=== PATIENT | male | born 1980 | race Caucasian/White ===

== ENCOUNTER 2016-12-27 15:51 | Emergency (ER) | payer OTHER ==
[2016-12-27 16:02] VITALS: BP 121/64; PULSE 70; TEMP 98.5; BMI 28.7
--- NOTE | 2016-12-27 17:38 | PDOC ---
History of Present Illness - General Chief Complaint: Injury Stated Complaint: INJURY Time Seen by Provider: 12/27/16 17:15 History Source: Patient Exam Limitations: No Limitations - History of Present Illness Initial Comments: 12/27/16 17:38 36 yr male states he was hit in the head with sheetrock 6 days ago to top of head while at work , NO loc, felt dizzy nausea with vomiting on and off since then. Pt also with neck pain and back pain. no abd pain neg urine or bowel dysfunction. . Pt has no medical history, no prior history of injury. 12/27/16 19:22 Severity: reports: moderate Past History - Past Medical History Allergies/Adverse Reactions: Allergies Allergy/AdvReac Type Severity Reaction Status Date / Time No Known Allergies Allergy Verified 12/27/16 16:02 Home Medications: Ambulatory Orders Cyclobenzaprine HCl [Flexeril -] 10 mg PO HS PRN #7 tablet 12/27/16 Other medical history: denies - Suicide/Smoking/Psychosocial Hx Smoking History: Never smoked Information on smoking cessation initiated: No Hx Alcohol Use: No Drug/Substance Use Hx: No Substance Use Type: None Trauma Specific PMHX - Complaint Specific PMHX Arthritis: No Back Injury: No Neck Injury: No Hx Sacro Iliac Joint Dysfunction: No Review of Systems - Review of Systems Able to Perform ROS?: Yes Is the patient limited Israeli proficient: No Constitutional: No: Symptoms Reported HEENTM: No: Symptoms Reported Respiratory: No: Symptoms reported Cardiac (ROS): No: Symptoms Reported ABD/GI: No: Symptoms Reported : No: Symptoms Reported Musculoskeletal: Yes: Neck Pain Integumentary: No: Symptoms Reported Neurological: Yes: Symptoms reported, Headache *Physical Exam - Vital Signs Last Vital Signs Temp Pulse Resp BP Pulse Ox 98.5 F 70 17 121/64 97 12/27/16 16:00 12/27/16 16:00 12/27/16 16:00 12/27/16 16:00 12/27/16 16:00 - Physical Exam General Appearance: Yes: Nourished, Appropriately Dressed HEENT: positive: EOMI, YURIDIA, Normal ENT Inspection, TMs Normal, Pharynx Normal Neck: positive: Supple. negative: Tender Respiratory/Chest: positive: Lungs Clear, Normal Breath Sounds. negative: Chest Tender Cardiovascular: positive: Regular Rhythm, Regular Rate Gastrointestinal/Abdominal: positive: Normal Bowel Sounds, Soft. negative: Tender Rectal Exam: positive: deferred Musculoskeletal: positive: Normal Inspection, Muscle Spasm (lumbar thoracic paraspinal muscles ), Vertebral Tenderness (cervical spine). negative: Decreased Range of Motion Extremity: positive: Normal Capillary Refill, Normal Inspection, Normal Range of Motion Integumentary: positive: Normal Color, Dry, Warm Neurologic: positive: Fully Oriented, Alert, Normal Mood/Affect, Normal Response , Motor Strength 5/5, Finger to Nose (intact, steady gait AOX3). negative: Numbness, Sensory Deficit, Confused, Disoriented Deep Tendon Reflexes: Bicep (L): 2+, Bicep (R): 2+, Tricep (L): 2+, Tricep (R): 2+ ED Treatment Course - RADIOLOGY Radiology Studies Ordered: Category Date Time Status CERVICAL SPINE CT W/O CONTR [CT] Stat CT Scan 12/27/16 17:[address] WITHOUT CONTRAST [CT] Stat CT Scan 12/27/16 17:27 Ordered Medical Decision Making - Medical Decision Making 12/27/16 19:23 cc: head injury at work 6 days ago has continued headache, dizzyness nasuea vomit yesterday and the accident no change in vision c/o apin to neck and back neg abd pain neg saddle anesthesia neg numbness or tingling to extremities neg groin pain 12/27/16 19:30 pt is aware of the cat scan results a copy has been given. pt is going to follow with his PMD next week to be cleared to return to work . Pt understands the dc plan and all questions asked and answered . *DC/Admit/Observation/Transfer Diagnosis at time of Disposition: Neck pain Concussion Qualifiers: Encounter type: initial encounter Loss of consciousness presence/duration: without LOC Qualified Code(s): S06.0X0A - Concussion without loss of consciousness, initial encounter; S06.0X0A - Concussion without loss of consciousness, initial encounter Back pain Qualifiers: Back pain location: thoracic back pain Chronicity: acute Back pain laterality: midline Qualified Code(s): M54.6 - Pain in thoracic spine; M54.6 - Pain in thoracic spine - Discharge Dispostion Disposition: HOME Condition at time of disposition: Good - Prescriptions Prescriptions: Cyclobenzaprine HCl [Flexeril -] 10 mg PO HS PRN #7 tablet PRN Reason: Muscle Spasms - Referrals Referrals: Neptali Calle MD [Primary Care Provider] - Markos Beaulieu MD [Staff Physician] - - Patient Instructions Additional Instructions: drink pleanty of water the next 3-4 days avoid any alcohol, you can take motrin as needed for any pain warm compresses to the back of neck and to your back can help avoid loud noises, texting reading small print avoid any sports/ strenuous activity until you have been cleared by the neurologist or your doctor for follow up - Post Discharge Activity Forms/Work/School Notes: Back to Work
[2016-12-27] MEDS ORDERED: NAPROXEN 500 MG TABLET (FP) PO ONE (19:13)
[2016-12-27] MEDS ORDERED: NAPROXEN 500 MG TABLET (FP) ONE (19:16)
== END 2016-12-27 19:30 | disposition home or self-care (01) ==
LOC: JERFT 15:51
DX: S06.0X0A Concussion without loss of consciousness, initial encounter (principal); M54.2 Cervicalgia; M54.6 Pain in thoracic spine; W20.8XXA Other cause of strike by thrown, projected or falling object, initial encounter; Y93.9 Activity, unspecified; Y92.9 Unspecified place or not applicable; Y99.0 Civilian activity done for income or pay
CPT/HCPCS: 70450-TC; 72125-TC; 72131-TC; 99281-25

== ENCOUNTER 2017-07-22 16:32 | Emergency (ER) | payer BC, OTHER ==
--- NOTE | 2017-07-22 16:44 | PDOC ---
History of Present Illness - General Chief Complaint: Chest Pain Stated Complaint: CHEST PAIN History Source: Patient Exam Limitations: No Limitations Past History - Past Medical History Allergies/Adverse Reactions: Allergies Allergy/AdvReac Type Severity Reaction Status Date / Time No Known Allergies Allergy Verified 12/27/16 16:02 Home Medications: Ambulatory Orders Cyclobenzaprine HCl [Flexeril -] 10 mg PO HS PRN #7 tablet 12/27/16 - Suicide/Smoking/Psychosocial Hx Smoking History: Never smoked Hx Alcohol Use: No Drug/Substance Use Hx: No Substance Use Type: None
[2017-07-22] MEDS ORDERED: SODIUM CHLORIDE 1,000 ML IV STA (16:45)
--- NOTE | 2017-07-22 16:47 | PDOC ---
History of Present Illness - General Chief Complaint: Chest Pain Stated Complaint: CHEST PAIN Time Seen by Provider: 07/22/17 16:46 History Source: Patient Exam Limitations: No Limitations - History of Present Illness Initial Comments: 07/22/17 16:55 Pt is a 37 yo M with no signif PMHx presenting 1 hr after sniffing cocaine with retrosternal pain. The pain is 10/10, non- radiating tightness of chest and diaphoresis. Pt also used alcohol but denies tobacco or other drug use. Has never had similar reaction in the past. No hx of syncope, no headaches, no seizures, no weakness of any part of the body. Pt used cialis yesterday night. No Shortness of breath, no cough, no leg swelling. Pt is anxious about the pain. No dysuria, no abdominal pain. Timing/Duration: 1-3 hours Severity: moderate Associated Symptoms: reports: chest pain, diaphoresis. denies: cough, fever/ chills, headaches, loss of appetite, nausea/vomiting, syncope Past History - Past Medical History Allergies/Adverse Reactions: Allergies Allergy/AdvReac Type Severity Reaction Status Date / Time No Known Allergies Allergy Verified 07/22/17 16:51 Home Medications: Ambulatory Orders Cyclobenzaprine HCl [Flexeril -] 10 mg PO HS PRN #7 tablet 12/27/16 - Suicide/Smoking/Psychosocial Hx Smoking History: Never smoked Hx Alcohol Use: Yes Drug/Substance Use Hx: Yes Substance Use Type: Cocaine (Used cocaine today) Patient Lives Alone: No Review of Systems - Review of Systems Is the patient limited Thai proficient: No Constitutional: Yes: Diaphoresis. No: Chills, Fever HEENTM: No: Nose Congestion, Throat Swelling Respiratory: No: Cough, Orthopnea, Shortness of Breath, SOB at Rest, Stridor, Wheezing, Productive cough Cardiac (ROS): Yes: Chest Pain, Palpitations, Chest Tightness. No: Edema, Irregular Heart Rate, Lightheadedness, Syncope ABD/GI: No: Abdominal Distended, Diarrhea, Difficulty Swallowing, Vomiting : No: Burning, Dysuria, Discharge Neurological: No: Headache, Numbness, Paresthesia, Seizure, Tremors, Weakness, Unsteady Gait, Dizziness *Physical Exam - Physical Exam General Appearance: Yes: Apparent Distress, Other (anxious) HEENT: positive: EOMI, Pharynx Normal Neck: positive: Supple. negative: Tender Respiratory/Chest: positive: Lungs Clear, Normal Breath Sounds. negative: Respiratory Distress Cardiovascular: positive: S1, S2, Tachycardia Gastrointestinal/Abdominal: positive: Normal Bowel Sounds, Soft. negative: Tender Musculoskeletal: negative: CVA Tenderness, Muscle Spasm Extremity: positive: Normal Inspection, Normal Range of Motion. negative: Tender, Coldness Integumentary: positive: Dry, Warm. negative: Cyanotic, Erythema Neurologic: positive: Fully Oriented, Alert, Motor Strength 5/5. negative: Facial Droop, Numbness, Confused, Disoriented Heart Score/ECG Review - History History: Slightly suspicious - Age Age: </= 45 - P and CO Comment:: 07/22/17 17:14 Poor data quality- Ventricular rate- 141bpm,sinus tachycardia, LAD, ST and T wave abnormality, consider inferior ischemia, no previous EKG to compare ED Treatment Course - LABORATORY CBC & Chemistry Diagram: 07/22/17 16:47 07/22/17 16:47 Medical Decision Making - Medical Decision Making 07/22/17 17:14 Pt will receive ASA, ativan 2mg, EKG stat done, iv normal saline 1L, cardiac monitoring CBC, CMP, cardiac profile, UA, urine tox, TSH, D dimer, urine culture, Continuous cardiac monitoring 07/22/17 17:15 Likely cocaine induced vasospasm R/O ACS, hyperthyroidism. anxiety disorder 07/22/17 17:16 K-3.2- Kcl- 10meq x2 07/22/17 17:29 07/22/17 17:43 Initial trops negative, repeat by 20.34 along with repeat EKG 07/22/17 17:44 07/22/17 17:47 D/W pt he is contemplating not having the repeat trops Risks were explained to him Penidng UA and utox 07/22/17 17:49 Creatinine kinaSE -6801 continue rehydration 07/22/17 17:57 Patient does not want to wait to have the repeat trops. He wants to sign against medical advice. The risks were explained to him of an acute NV, syncope, seizures and sudden Patient signed against medical advice and left 07/22/17 18:02 *DC/Admit/Observation/Transfer Diagnosis at time of Disposition: Coronary vasospasm, Cocaine use, Tachycardia Chest pain Qualifiers: Chest pain type: unspecified Qualified Code(s): R07.9 - Chest pain, unspecified - Discharge Dispostion Disposition: AGAINST MEDICAL ADVICE - Referrals Referrals: Neptali Calle MD [Primary Care Provider] - - Patient Instructions - Post Discharge Activity - Attestations Physician Attestion: 07/22/17 18:10 Nusrat Norman MD
[2017-07-22] MEDS ORDERED: ASPIRIN 325 MG TABLET PO ONE (16:49)
[2017-07-22 16:52] VITALS: BMI 28.7
[2017-07-22] MEDS ORDERED: ASPIRIN 325 MG TABLET ONE (16:52)
[2017-07-22 16:55] LABS: BASO % 0.4 % (0-2.0); EOS % 1.1 % (0-4.5); HEMATOCRIT 44.6 % (35.4-49); HEMOGLOBIN 15.6 GM/dL (11.7-16.9); LYMPH % 39.3 % (8-40); MEAN CELL VOLUME 88.5 fl (80-96); MEAN PLT VOLUME 8.4 fl (7.5-11.1); MONO % 11.3 % (3.8-10.2); NEUT % 47.9 % (42.8-82.8); PLATELET COUNT 334 K/MM3 (134-434); RBC 5.04 M/mm3 (4.00-5.60); RDW 13.3 % (11.9-15.9); WHITE BLOOD COUNT 10.4 K/mm3 (4.0-10.0)
--- NOTE | 2017-07-22 17:16 | PDOC ---
Attending Attestation - Resident Resident Name: Nusrat Norman I - ED Attending Attestation I have performed the following: I have examined & evaluated the patient, The case was reviewed & discussed with the resident, I agree w/resident's findings & plan, Exceptions are as noted - HPI HPI: 07/22/17 17:00 Mr pham is a 37 yo M who reports no past medical history he presents to the ER with his friend due to chest pain and palpitations Pt reports that he took cocaine approximately 1 hour ago He noticed chest pain and tachycardia Pt tells me that he has used cocaine before He does not notice any difference between the cocaine he used today and what he has done previously He denies any other drug use today - Physicial Exam PE: 07/22/17 17:16 On examination Pt is anxious Can not sit on the stretcher Is pacing Tachycardiac, no murmur appreciated CTA bilaterally No abd tenderness Moves all extremities normally - Medical Decision Making 07/22/17 17:17 Pt presents to the ER with a complaint of chest pain, he is noted to be tachycardiac DD: Effects of cocaine, ACS, Hyperthyroidism, PE, Arryhthmia Will do: Labs EKG IVF Valium Asa Will re assess EKG: sinus tachucardia rate of 141bpm, Left axis deviation, no st elevations, prominent t waves, artifact on baseline 07/22/17 17:42 Laboratory Tests 07/22/17 07/22/17 07/22/17 16:47 16:47 16:47 WBC 10.4 H Hgb 15.6 Hct 44.6 Plt Count 334 D-Dimer 705 H Sodium 138 Potassium 3.2 L Chloride 100 Carbon Dioxide 25 BUN 15 Creatinine 1.2 Random Glucose 129 H AST 169 H ALT 118 H Creatine Kinase 6801 H Troponin I < 0.02 TSH 1.04 Pt states he is felling much better chest pain has resolved D dimer sent prior to patient admitting to cocaine intoxication I do not believe based on his history, that he has a pulmonary embolism Despite the elevation in d dimer, I will not order CTA Will repeat troponin 07/22/17 18:01 Pt feels much better Refusing to stay for any additional medications or IV fluids Will leave AMA Follow up with PMD Note: The patient insists on leaving the emergency dept and is signing out against medical advice. The patient understands the risks and complications that may result from the refusal of medical care and admission which includes and permanent disability. The patient has the mental capacity of understanding the risks of refusing care and is capable of making an informed decision. The patient was instructed to return to the emergency department should he change his mind regarding medical care or should his condition worsen. The patient signed the Against Medical Advice form. 07/23/17 00:54 Discharge Disposition - Diagnosis Tachycardia, Cocaine use, Coronary vasospasm Chest pain Qualifiers: Chest pain type: unspecified Qualified Code(s): R07.9 - Chest pain, unspecified - Discharge Dispostion Disposition: AGAINST MEDICAL ADVICE Condition at time of disposition: Fair Admit: No - Referrals Referrals: Neptali Calle MD [Primary Care Provider] - - Patient Instructions - Post Discharge Activity Critical Care Time/MDM Note Total Critical Care Time: 35 Critical Care Statement: The care of this patient involved high complexity decision making to prevent further life threatening deterioration of the patient 's condition and/or to evaluate & treat vital organ system(s) failure or risk of failure.
[2017-07-22 17:21] LABS: ALBUMIN 4.2 g/dl (3.4-5.0); ANION GAP 13 (8-16); BILIRUBIN,TOTAL 0.6 mg/dL (0.2-1.0); BLOOD UREA NITROGEN 15 mg/dL (7-18); CALCIUM 8.4 mg/dL (8.5-10.1); CHLORIDE 100 mmol/L (98-107); CO2 25 mmol/L (21-32); CREATININE 1.2 mg/dL (0.7-1.3); GLUCOSE,RANDOM 129 mg/dL (74-106); POTASSIUM 3.2 mmol/L (3.5-5.1); SGOT/AST 169 U/L (15-37); SGPT/ALT 118 U/L (12-78); SODIUM 138 mmol/L (136-145); TOT PROT 7.7 g/dl (6.4-8.2)
[2017-07-22 17:29] LABS: ALK PHOS 82 U/L (45-117)
[2017-07-22] MEDS ORDERED: KCL 10 MEQ IVPB 10 MEQ/100 ML INFUS.BAG IVPB SCH (17:30)
[2017-07-22 18:25] VITALS: BP 143/94; PULSE 107; TEMP 98
--- NOTE | 2017-07-24 10:46 | EKG ---
Test Reason : Blood Pressure : / mmHG Vent. Rate : 141 BPM Atrial Rate : 141 BPM P-R Int : 156 ms QRS Dur : 094 ms QT Int : 248 ms P-R-T Axes : 000 -78 268 degrees QTc Int : 379 ms POOR DATA QUALITY, INTERPRETATION MAY BE ADVERSELY AFFECTED SINUS TACHYCARDIA LEFT AXIS DEVIATION ABNORMAL ECG NO PREVIOUS ECGS AVAILABLE Confirmed by MARIAH ORTEZ MD ([id number]) on 07/24/2017 10:45:46 AM Referred By: Confirmed By:MARIAH ORTEZ MD
== END 2017-07-22 18:11 | disposition left against medical advice (07) ==
LOC: JER 16:32
PROC: 3E0337Z Introduction of Electrolytic and Water Balance Substance into Peripheral Vein, Percutaneous Approach (ICD-10-PCS; principal; 2017-07-22)
PROC: 3E033NZ Introduction of Analgesics, Hypnotics, Sedatives into Peripheral Vein, Percutaneous Approach (ICD-10-PCS; 2017-07-22)
DX: I20.1 Angina pectoris with documented spasm (principal); R07.89 Other chest pain; F14.10 Cocaine abuse, uncomplicated
CPT/HCPCS: 36415; 80053; 82550; 82553; 84443; 84484; 85025; 85379; 93005; 93010; 99285-25; J7030

== ENCOUNTER 2018-02-22 11:27 | Emergency (ER) | payer BC, OTHER ==
--- NOTE | 2018-02-22 11:37 | PDOC ---
Attending Attestation - Resident Resident Name: Ronna Mann - HPI HPI: 02/22/18 12:46 Pt presents to the ED complaining of epigastric pain, nausea and vomiting that started this AM. Patient reports that he is on chronic oxycodone, which he has not taken for three weeks. Denies diarrhea or fevers. - Physicial Exam PE: 02/22/18 12:50 Agree with resident exam. Patient is in no acute distress. Abdomen is non tender, non distended without guarding or rebound. - Medical Decision Making 02/22/18 12:50 Pt presents to the Ed complaining of nausea, vomiting and epigastric pain. Differential includes pancreatitis, biliary disease, gastritis, unlikely cardiac. Will check labs and give IV hydration and anti emetics and re- evaluate.
--- NOTE | 2018-02-22 11:37 | PDOC ---
History of Present Illness - General Chief Complaint: Nausea Stated Complaint: i think im going into withdrawal Time Seen by Provider: 02/22/18 11:34 History Source: Patient Exam Limitations: No Limitations - History of Present Illness Initial Comments: 02/22/18 11:59 Pt is a 37yo M with no significant PMH presenting to ED with complaints of "not feeling right" for the past 2 days and feels like he is going through withdrawal. Pt takes oxycodone 10 and Seroquel, last took oxycodone yesterday and has a new prescription but has not filled it yet. Pt says he has not had an appetite and feels weak. He endorses vomiting clear liquid this morning and feeling nauseous. He denies fever, chills, chest pain, sob, cough, abdominal pain, diarrhea, urinary symptoms. PMD: N[place] PMH: none PSH: none Meds: seroquel, oxycodone Allergies; nkda Social: occasional alcohol use. Past History - Past Medical History Allergies/Adverse Reactions: Allergies Allergy/AdvReac Type Severity Reaction Status Date / Time No Known Allergies Allergy Verified 02/22/18 11:34 Home Medications: Ambulatory Orders Ondansetron [Zofran -] 4 mg PO DAILY #7 tablet 02/22/18 Oxycodone HCl/Acetaminophen [Oxycodone-Acetaminophen 10-325] 1 each PO TID 02/22 Quetiapine Fumarate [Seroquel] 100 mg PO HS 02/22/18 COPD: No - Suicide/Smoking/Psychosocial Hx Smoking History: Never smoked Hx Alcohol Use: Yes Drug/Substance Use Hx: Yes Substance Use Type: Cocaine (Used cocaine today) *Physical Exam - Physical Exam General Appearance: Yes: Nourished, Appropriately Dressed, Mild Distress HEENT: positive: EOMI, YURIDIA (mydriatic pupils), Symmetrical, Pharynx Normal Neck: positive: Trachea midline, Supple. negative: Lymphadenopathy (R), Lymphadenopathy (L) Respiratory/Chest: positive: Lungs Clear, Normal Breath Sounds. negative: Crackles, Rales, Rhonchi, Stridor, Wheezing Cardiovascular: positive: Regular Rhythm, Regular Rate, S1, S2. negative: Edema , JVD, Murmur Vascular Pulses: Carotid (R): 2+, Carotid (L): 2+, Dorsalis-Pedis (R): 2+, Doralis-Pedis (L): 2+ Gastrointestinal/Abdominal: positive: Normal Bowel Sounds, Soft, Tenderness ( diffuse, however greater in epigastrum ). negative: Distended, Guarding, Rebound Musculoskeletal: negative: CVA Tenderness Extremity: positive: Normal Capillary Refill Integumentary: positive: Normal Color, Dry, Warm Neurologic: positive: emu farmer II-XII NML intact, Fully Oriented, Alert, Normal Mood/ Affect, Normal Response, Motor Strength 07/22 ED Treatment Course - LABORATORY CBC & Chemistry Diagram: 02/22/18 11:52 02/22/18 11:52 Medical Decision Making - Medical Decision Making 02/22/18 12:02 Pt is a 37yo M with no significant PMH presenting to ED with complaints of "not feeling right" for the past 2 days and feels like he is going through withdrawal. Pt takes oxycodone 10 and Seroquel, last took oxycodone yesterday and has a new prescription but has not filled it yet. Pt says he has not had an appetite and feels weak. He endorses vomiting clear liquid this morning and feeling nauseous. He denies fever, chills, chest pain, sob, cough, abdominal pain, diarrhea, urinary symptoms. Vitals: wnl PE: epigastric tenderness, mydriatic pupils, dry mucous membranes ddx includes cholecyctitis, appendicitis, pancreatitis, gastritis, pud, opiate withdrawal. cbc, cmp, lipase, ua, utox ordered. will give ivf, zofran and pepcid. Will reeval. 02/22/18 12:45 Labs show elevated WBC at 11.1 otherwise wnl. Lipase still pending. All other labs wnl. Utox positive for bz. Lipase still pending. Pt reported feeling better. Wanted to go home. Pt does not have any acute problems per physical exam and labs other than lipase still pending. Will call if results are abnormal. Pt agrees to come back if so. Has pmd follow up. DC home. Given strict return precautions. *DC/Admit/Observation/Transfer Diagnosis at time of Disposition: Weakness Nausea & vomiting Qualifiers: Vomiting type: unspecified Vomiting Intractability: non-intractable Qualified Code(s): R11.2 - Nausea with vomiting, unspecified - Discharge Dispostion Disposition: HOME Condition at time of disposition: Good Decision to Admit order: No - Prescriptions Prescriptions: Ondansetron [Zofran -] 4 mg PO DAILY #7 tablet - Referrals Referrals: Neptali Calle MD [Primary Care Provider] - - Patient Instructions Printed Discharge Instructions: DI for Nausea -- Adult, DI for Vomiting -- Adult Additional Instructions: You were seen here today for feelings of weakness, nausea and vomiting. All of your tests were normal. If you have medications prescribed by your doctor, please take your medications. Remember to take your medications as directed unless changed by your doctor. I recommend you make an appointment with Dr. Calle in the next few days for further evaluation and management of your symptoms. Please make sure you stay hydrated! If you cannot tolerate solid foods, stick to soups for now. Come back to the emergency room if you feel more weak, you develop fever, you cannot stop vomiting, you pass out or if any new concerning symptom develops. Thank you - Post Discharge Activity
[2018-02-22 11:38] VITALS: BP 130/86; PULSE 82; TEMP 98.5; BMI 30.1
[2018-02-22] MEDS ORDERED: SODIUM CHLORIDE 1,000 ML IV STA (11:48)
[2018-02-22] MEDS ORDERED: FAMOTIDINE 20 MG/50 ML IVPB 20 MG/50 ML MG IVPB ONE ×2 (11:48→12:00)
[2018-02-22] MEDS ORDERED: ONDANSETRON 4 MG/2 ML VIAL IVPB ONE (11:48)
[2018-02-22] MEDS ORDERED: ONDANSETRON 4 MG/2 ML VIAL ONE (12:00)
[2018-02-22 12:15] LABS: BASO % 2.1 % (0-2.0); EOS % 0.3 % (0-4.5); HEMATOCRIT 48.9 % (35.4-49); HEMOGLOBIN 16.1 GM/dl (11.7-16.9); LYMPH % 10.8 % (8-40); MCH 29.3 pg (25.7-33.7); MEAN CELL VOLUME 88.7 fl (80-96); MEAN PLT VOLUME 8.1 fl (7.5-11.1); NEUT % 78.8 % (42.8-82.8); PLATELET COUNT 430 K/MM3 (134-434); RBC 5.51 M/mm3 (4.00-5.60); RDW 12.8 % (11.9-15.9); WHITE BLOOD COUNT 11.1 K/mm3 (4.0-10.8)
[2018-02-22 12:23] LABS: PH,URINE 5.5 (4.5-8); URINE APPEARANCE Clear; URINE BILIRUBIN 1+ (NEGATIVE); URINE COLOR Yellow; URINE GLUCOSE (UA) Negative (NEGATIVE); URINE KETONE Trace (NEGATIVE); URINE LEUK ESTERASE Negative (NEGATIVE); URINE NITRITE Negative (NEGATIVE); URINE PROTEIN Trace (NEGATIVE); URINE UROBILINOGEN 0.2 (0.2-1.0)
[2018-02-22 12:27] LABS: ALBUMIN 4.4 g/dl (3.5-5.0); ALK PHOS 71 U/L (32-92); ANION GAP 8 MMOL/L (8-16); BILIRUBIN,TOTAL 0.7 mg/dl (0.2-1.0); BLOOD UREA NITROGEN 25 mg/dl (7-18); CALCIUM 9.9 mg/dl (8.4-10.2); CHLORIDE 100 mmol/L (98-107); CO2 27 mmol/L (22-28); CREATININE 0.9 mg/dl (0.6-1.3); GLUCOSE,RANDOM 107 mg/dl (74-106); POTASSIUM 4.4 mmol/L (3.5-5.1); SGOT/AST 27 U/L (10-42); SGPT/ALT 40 U/L (10-40); SODIUM 135 mmol/L (136-145); TOT PROT 8.4 g/dl (6.4-8.3)
[2018-02-22 12:36] LABS: URINE RBC 0-2 /hpf (0-3)
[2018-02-22 14:05] LABS: COCAINE, UR NEGATIVE ng/ml (CUTOFF=300); METHADONE, UR NEGATIVE ng/ml (CUTOFF=300); OPIATES, URI NEGATIVE ng/ml (CUTOFF=300); PHENCYCLIDINE,URINE NEGATIVE ng/ml (CUTOFF=25); URINE AMPHETAMINES NEGATIVE ng/ml (CUTOFF=500); URINE BARBITURATES NEGATIVE ng/ml (CUTOFF=200)
[2018-02-22 14:16] LABS: URINE BENZODIAZEPINES POSITIVE ng/ml (CUTOFF=200)
== END 2018-02-22 14:13 | disposition home or self-care (01) ==
LOC: FER 11:27
PROC: 3E033GC Introduction of Other Therapeutic Substance into Peripheral Vein, Percutaneous Approach (ICD-10-PCS; principal; 2018-02-22)
PROC: 3E0337Z Introduction of Electrolytic and Water Balance Substance into Peripheral Vein, Percutaneous Approach (ICD-10-PCS; 2018-02-22)
DX: R11.2 Nausea with vomiting, unspecified (principal); R53.1 Weakness
CPT/HCPCS: 36415; 80053; 80307; 81003; 81015; 83690; 85025; 99282-25; J7030

== ENCOUNTER 2018-06-01 23:12 | Emergency (ER) | payer SELFPAY ==
--- NOTE | 2018-06-01 23:15 | PDOC ---
History of Present Illness - General Chief Complaint: Psychiatric Stated Complaint: ANXIETY Time Seen by Provider: 06/01/18 23:14 - History of Present Illness Initial Comments: This 38-year-old man with a known history of opiate dependence presents with several day history of progressive tremulousness, insomnia and generalized anxiety. Patient describes being in inpatient detox/rehabilitation program for opiate abuse in early March of this year(facility in [facility]). After he was discharged, he was prescribed alprazolam by one of his physicians for insomnia. Although patient is unclear on details, it appears that he had been taking alprazolam daily until approximately 10 days ago when he stopped on his own. He states that he no longer wanted to be taking the medication but did not want to be in a detox/rehabilitation program for benzodiazepine withdrawal. In the last several days, patient has been unable to sleep with increased tremulousness, intermittent nausea, occasional chest discomfort. Patient had read on the Internet about benzodiazepine withdrawal and is concerned about having a seizure. Patient denies opiate use since his rehabilitation program in March. PMD: Dr. Calle; patient has also been seen by [he has not seen either physician in several weeks] Past History - Past Medical History Allergies/Adverse Reactions: Allergies Allergy/AdvReac Type Severity Reaction Status Date / Time No Known Allergies Allergy Verified 02/22/18 11:34 Home Medications: Ambulatory Orders Percocet 10-325 mg Tablet 06/01/18 Xanax 06/01/18 Alprazolam [Xanax] 0.25 mg PO BID #10 tablet MDD 2 tabs 06/02/18 Ondansetron [Zofran Odt -] 4 mg SL BID #10 od.tablet 06/02/18 COPD: No - Suicide/Smoking/Psychosocial Hx Smoking History: Never smoked Hx Alcohol Use: Yes Drug/Substance Use Hx: Yes Substance Use Type: Cocaine (Used cocaine today) Review of Systems - Review of Systems Able to Perform ROS?: Yes Comments:: 12 point review of systems is negative except for what is noted in the history of present illness *Physical Exam - Physical Exam Comments: GENERAL: Adult male, anxious but cooperative; BP 118/74, HR 89, pulse ox 100% on room air HEAD: Normal with no signs of trauma. EYES: PERRLA, EOMI, sclera anicteric, conjunctiva clear. ENT: Ears normal, nares patent, oropharynx clear without exudates. Tongue minimal fasciculations Dry mucous membranes. NECK: Normal range of motion, supple without lymphadenopathy, JVD, or masses. LUNGS: Breath sounds equal, clear to auscultation bilaterally. No wheezes, and no crackles. HEART:Regular rate and rhythm, normal S1 and S2 without murmur, rub or gallop. ABDOMEN:.normal bowel sounds No guarding,tenderness or rebound.No masses No distention. EXTREMITIES: Normal range of motion, no edema. No clubbing or cyanosis. No erythema, or tenderness. NEUROLOGICAL: Cranial nerves II through XII grossly intact. Normal speech. No focal neurological deficits. MUSCULOSKELETAL: Back non-tender to palpation, no CVA tenderness SKIN: Warm, Dry, normal turgor, no rashes or lesions noted. 12-lead electrocardiogram is performed and interpreted by me: Normal sinus rhythm at 80 beats per minute; wave forms, axis, intervals are all normal. No evidence of acute ST or T-wave abnormalities. No evidence of acute cardiac arrhythmia ED Treatment Course - LABORATORY CBC & Chemistry Diagram: 06/01/18 23:50 06/01/18 23:50 Medical Decision Making - Medical Decision Making This 38-year-old man with a history of opiate dependence,s/p seemingly successful rehabilitation for narcotics 2 months ago, presents with symptoms of tremulousness/insomnia/nausea for the last several days. The patient had stopped apparent daily alprazolam use 10 days ago "cold turkey". Benzodiazepine had been started for the first time approximately 6 weeks prior to that, prescribed by physician for insomnia. Patient denies prior use of any benzodiazepines. He denies any other recreational drug use/alcohol use at this time. Exam as noted. Although many of the patient's symptoms may be related to underlying anxiety, since details of patient's drug use are very unclear, some aspect of benzodiazepine withdrawal has to be considered. Vital signs show no evidence of instability and 12-lead electrocardiogram is normal. Since patient appears clinically dehydrated, 1 L normal saline IV given and CBC/ chemistry profile sent. Meanwhile, patient was given alprazolam 0.5 milligrams by mouth. Laboratory evaluation results: Blood cell count minimally elevated 11,100; remainder of CBC normal. Chemistry profile essentially normal except for elevated BUN consistent with mild prerenal azotemia (BUN 22/creatinine 1.0). Patient reports feeling somewhat better after alprazolam 0.5 mg by mouth. Patient was reassured that acute, life-threatening benzodiazepine withdrawal did not appear to be present. Still, because some of his symptoms may be related to withdrawal, low-dose daily alprazolam (0.25 mg twice a day) is warranted until he can be seen by his doctors and arrangements for formal detox/ rehabilitation made. Prescription for alprazolam 0.25 mg twice a day (#10) sent to his pharmacy. In addition, his anxiety disorder needs to be addressed by his doctors. He was strongly advised to call and when office opens on Monday , 06/04. Contact information for area detox/rehabilitation programs provided for the patient. Patient was discharged in stable condition, accompanied by family friend who will drive him home *DC/Admit/Observation/Transfer Diagnosis at time of Disposition: Benzodiazepine dependence, Anxiety - Discharge Dispostion Disposition: HOME Condition at time of disposition: Stable - Prescriptions Prescriptions: Alprazolam [Xanax] 0.25 mg PO BID #10 tablet MDD 2 tabs Ondansetron [Zofran Odt -] 4 mg SL BID #10 od.tablet - Referrals Referrals: Neptali Calle MD [Primary Care Provider] - 3 days Yousuf Stern MD [Staff Physician] - 3 days - Patient Instructions Printed Discharge Instructions: DI for Anxiety -- Adult Additional Instructions: Drink plenty of water Alprazolam 0.25 milligrams twice a day Zofran ODT 4mg up to twice a day as needed for nausea Follow-up with Dr. Calle and within the next 3-4 days Consider detox/rehabilitation program in the near future Return to ER if you have worsening tremors or develop chest pain/shortness of breath/vomiting - Post Discharge Activity
[2018-06-01 23:20] VITALS: BP 118/74; PULSE 89; TEMP 98.5
[2018-06-01] MEDS ORDERED: SODIUM CHLORIDE 1,000 ML IV STA (23:44)
[2018-06-02] MEDS ORDERED: ALPRAZolam 0.25 MG TABLET PO ONE (00:12)
[2018-06-02] MEDS ORDERED: ALPRAZolam 0.25 MG TABLET ONE (00:20)
[2018-06-02 00:27] LABS: BASO % 0.5 % (0-2.0); EOS % 0.1 % (0-4.5); HEMATOCRIT 45.7 % (35.4-49); HEMOGLOBIN 15.5 GM/dL (11.7-16.9); MCH 29.8 pg (25.7-33.7); MCHC 33.9 g/dl (32.0-35.9); MEAN CELL VOLUME 87.8 fl (80-96); MEAN PLT VOLUME 8.4 fl (7.5-11.1); MONO % 6.1 % (3.8-10.2); NEUT % 81.3 % (42.8-82.8); PLATELET COUNT 377 K/MM3 (134-434); RBC 5.21 M/mm3 (4.00-5.60); RDW 13.7 % (11.9-15.9); WHITE BLOOD COUNT 11.1 K/mm3 (4.0-10.0)
[2018-06-02 00:54] LABS: ALBUMIN 4.3 g/dl (3.4-5.0); ALK PHOS 72 U/L (45-117); ANION GAP 6 MMOL/L (8-16); BILIRUBIN,TOTAL 0.6 mg/dL (0.2-1); BLOOD UREA NITROGEN 22 mg/dL (7-18); CALCIUM 9.5 mg/dL (8.5-10.1); CHLORIDE 104 mmol/L (98-107); CO2 26 mmol/L (21-32); CREATININE 0.9 mg/dL (0.55-1.3); GLUCOSE,RANDOM 107 mg/dL (74-106); POTASSIUM 4.3 mmol/L (3.5-5.1); SGOT/AST 16 U/L (15-37); SGPT/ALT 30 U/L (13-61); SODIUM 136 mmol/L (136-145); TOT PROT 7.6 g/dl (6.4-8.2)
--- NOTE | 2018-06-02 13:10 | EKG ---
Test Reason : Blood Pressure : / mmHG Vent. Rate : 080 BPM Atrial Rate : 080 BPM P-R Int : 150 ms QRS Dur : 102 ms QT Int : 380 ms P-R-T Axes : 043 031 060 degrees QTc Int : 438 ms NORMAL SINUS RHYTHM NORMAL ECG WHEN COMPARED WITH ECG OF 22-JUL-2017 16:38, VENT. RATE HAS DECREASED BY 61 BPM QRS AXIS SHIFTED RIGHT NON-SPECIFIC CHANGE IN ST SEGMENT IN INFERIOR LEADS ST NO LONGER DEPRESSED IN ANTERIOR LEADS T WAVE INVERSION NO LONGER EVIDENT IN INFERIOR LEADS Confirmed by MD DELMI, LORETO ([id number]) on 06/02/2018 1:09:56 PM Referred By: MD DENSON Confirmed By:LORETO AWAD MD
== END 2018-06-02 02:15 | disposition home or self-care (01) ==
LOC: FER 23:12
PROC: 3E0337Z Introduction of Electrolytic and Water Balance Substance into Peripheral Vein, Percutaneous Approach (ICD-10-PCS; principal; 2018-06-01)
DX: F11.90 Opioid use, unspecified, uncomplicated (principal); F41.9 Anxiety disorder, unspecified
CPT/HCPCS: 36415; 80053; 85025; 93005; 99282-25; J7030

== ENCOUNTER 2020-08-12 14:37 | Inpatient (IN) | payer OTHER ==
[2020-08-12 15:51] VITALS: BMI 29.0
[2020-08-12] MEDS ORDERED: MAGNESIUM CITRATE 300 ML BOTTLE PO PRN (16:53)
[2020-08-12] MEDS ORDERED: MAGNESIUM HYDROX 2400MG/30ML ORAL SUSPENSION 30 ML CUP PO PRN (16:53)
[2020-08-12] MEDS ORDERED: ACETAMINOPHEN 325 MG TABLET (FP) PO PRN ×2 (16:53)
[2020-08-12] MEDS ORDERED: NICOTINE POLACRILEX 2 MG GUM BUC PRN (16:53)
[2020-08-12] MEDS ORDERED: ONDANSETRON *ODT* 4 MG TABLET SL PRN (16:53)
[2020-08-12] MEDS ORDERED: MAG HYDROX/AL HYDROX/SIMETH 30 ML UNIT-DOSE CUP PO PRN (16:53)
[2020-08-12] MEDS ORDERED: MENTHOL/PHENOL 1 EACH UD MM PRN (16:53)
[2020-08-12] MEDS ORDERED: IBUPROFEN 400 MG TABLET (FP) PO PRN (16:53)
[2020-08-12] MEDS ORDERED: BISMUTH SUBSALICYLATE 524 MG/30 ML PO PRN (16:53)
[2020-08-12] MEDS: hydrOXYzine PAMOATE 25 MG CAPSULE (FP) PO SCH ×2 (18:48→23:43)
[2020-08-12] MEDS: MELATONIN 5 MG TABLETS PO SCH (23:43)
[2020-08-12] MEDS: THIAMINE HCL 100 MG TABLET (FP) PO SCH (23:43)
[2020-08-13] MEDS: hydrOXYzine PAMOATE 25 MG CAPSULE (FP) PO SCH ×5 (05:37→22:32)
[2020-08-13] MEDS ORDERED: METHADONE HCL 10 MG TABLET (FOR DETOX USE ONLY) PO ONE (09:06)
[2020-08-13] MEDS ORDERED: cloNIDine HCL 0.1 MG TABLET PO PRN (09:06)
[2020-08-13 09:59] LABS: HEMATOCRIT 40.8 % (35.4-49); HEMOGLOBIN 13.8 GM/dL (11.7-16.9); MCH 29.8 pg (25.7-33.7); MCHC 33.8 g/dl (32.0-35.9); MEAN PLT VOLUME 8.4 fl (7.5-11.1); PLATELET COUNT 256 K/MM3 (134-434); RBC 4.63 M/mm3 (4.00-5.60); RDW 13.5 % (11.9-15.9); WHITE BLOOD COUNT 4.8 K/mm3 (4.0-10.0)
[2020-08-13 10:10] LABS: CALCIUM 8.7 mg/dL (8.5-10.1)
[2020-08-13 10:11] LABS: ALBUMIN 3.3 g/dl (3.4-5.0); BLOOD UREA NITROGEN 16.7 mg/dL (7-18)
[2020-08-13] MEDS: PRENATAL VITAMINS W/ FOLIC ACID TABLET (FP) PO SCH (10:14)
[2020-08-13 10:15] LABS: BILIRUBIN,TOTAL 0.6 mg/dL (0.2-1); TOT PROT 6.5 g/dl (6.4-8.2)
[2020-08-13] MEDS: MELATONIN 5 MG TABLETS PO SCH (22:32)
[2020-08-13] MEDS: THIAMINE HCL 100 MG TABLET (FP) PO SCH (22:32)
[2020-08-14] MEDS: hydrOXYzine PAMOATE 25 MG CAPSULE (FP) PO SCH ×5 (05:08→23:09)
[2020-08-14] MEDS ORDERED: METHADONE HCL 5 MG TABLET (FOR DETOX USE ONLY) ONE (09:18)
[2020-08-14] MEDS ORDERED: METHADONE HCL 10 MG TABLET (FOR DETOX USE ONLY) ONE (09:19)
[2020-08-14] MEDS ORDERED: METHADONE (DETOX) 20 MG, METHADONE (DETOX) 5 MG PO ONE (10:00)
[2020-08-14] MEDS: PRENATAL VITAMINS W/ FOLIC ACID TABLET (FP) PO SCH (10:16)
[2020-08-14] MEDS: diazePAM 5 MG TABLET PO PRN ×3 (10:17→23:09)
[2020-08-14] MEDS: METHOCARBAMOL 500 MG TABLET PO PRN (17:50)
[2020-08-14] MEDS: THIAMINE HCL 100 MG TABLET (FP) PO SCH (23:09)
[2020-08-14] MEDS: MELATONIN 5 MG TABLETS PO SCH (23:09)
[2020-08-15] MEDS: hydrOXYzine PAMOATE 25 MG CAPSULE (FP) PO SCH ×5 (06:56→22:06)
[2020-08-15] MEDS ORDERED: METHADONE HCL 10 MG TABLET (FOR DETOX USE ONLY) PO ONE (10:00)
[2020-08-15] MEDS: diazePAM 5 MG TABLET PO PRN ×3 (10:21→22:48)
[2020-08-15] MEDS: PRENATAL VITAMINS W/ FOLIC ACID TABLET (FP) PO SCH (11:24)
[2020-08-15] MEDS: MELATONIN 5 MG TABLETS PO SCH (22:06)
[2020-08-15] MEDS: THIAMINE HCL 100 MG TABLET (FP) PO SCH (22:06)
[2020-08-16 00:09] LABS: SARS-CoV-2 NAA Not Detected (Not Detected)
[2020-08-16] MEDS: diazePAM 5 MG TABLET PO PRN ×3 (06:59→22:15)
[2020-08-16] MEDS: hydrOXYzine PAMOATE 25 MG CAPSULE (FP) PO SCH ×5 (07:02→22:14)
[2020-08-16] MEDS ORDERED: METHADONE HCL 5 MG TABLET (FOR DETOX USE ONLY) ONE (08:34)
[2020-08-16] MEDS ORDERED: METHADONE HCL 10 MG TABLET (FOR DETOX USE ONLY) ONE (08:34)
[2020-08-16] MEDS: PRENATAL VITAMINS W/ FOLIC ACID TABLET (FP) PO SCH (09:41)
[2020-08-16] MEDS ORDERED: METHADONE (DETOX) 10 MG, METHADONE (DETOX) 5 MG PO ONE (10:00)
[2020-08-16] MEDS: MELATONIN 5 MG TABLETS PO SCH (22:14)
[2020-08-16] MEDS: THIAMINE HCL 100 MG TABLET (FP) PO SCH (22:15)
[2020-08-17] MEDS: hydrOXYzine PAMOATE 25 MG CAPSULE (FP) PO SCH ×6 (05:55→22:28)
[2020-08-17] MEDS ORDERED: METHADONE HCL 10 MG TABLET (FOR DETOX USE ONLY) PO ONE (10:00)
[2020-08-17] MEDS: PRENATAL VITAMINS W/ FOLIC ACID TABLET (FP) PO SCH (10:14)
[2020-08-17] MEDS: THIAMINE HCL 100 MG TABLET (FP) PO SCH (22:28)
[2020-08-17] MEDS: MELATONIN 5 MG TABLETS PO SCH (22:29)
[2020-08-18] MEDS: hydrOXYzine PAMOATE 25 MG CAPSULE (FP) PO SCH ×2 (05:35→10:10)
[2020-08-18] MEDS: METHOCARBAMOL 500 MG TABLET PO PRN (05:37)
[2020-08-18] MEDS ORDERED: METHADONE HCL 5 MG TABLET (FOR DETOX USE ONLY) PO ONE (06:00)
[2020-08-18] MEDS: PRENATAL VITAMINS W/ FOLIC ACID TABLET (FP) PO SCH (10:10)
[2020-08-18 12:56] VITALS: BP 126/60; PULSE 83; TEMP 97.3
== END 2020-08-18 12:40 | disposition other institution (70) | DRG 773 ==
LOC: YASAS 14:37 → UNDOADMIN 17:26 → Y6N 17:26
PROVIDERS: ADMIT Allergy & Immunology; ATTEND Allergy & Immunology
PROC: HZ2ZZZZ Detoxification Services for Substance Abuse Treatment (ICD-10-PCS; principal; 2020-08-12)
DX: F11.23 Opioid dependence with withdrawal (principal); F14.20 Cocaine dependence, uncomplicated; F13.20 Sedative, hypnotic or anxiolytic dependence, uncomplicated; F10.20 Alcohol dependence, uncomplicated; M54.89 Other dorsalgia; R74.01 Elevation of levels of liver transaminase levels; Z87.891 Personal history of nicotine dependence
CPT/HCPCS: 36415; 80053; 85027; 86780; C9803; U0003; U0005

== ENCOUNTER 2020-08-18 12:24 | Inpatient (IN) | payer OTHER ==
[2020-08-18] MEDS ORDERED: NICOTINE POLACRILEX 2 MG GUM BUC PRN (13:17)
[2020-08-18] MEDS ORDERED: hydrOXYzine PAMOATE 25 MG CAPSULE (FP) PO PRN (13:17)
[2020-08-18] MEDS ORDERED: ACETAMINOPHEN 325 MG TABLET (FP) PO PRN (13:17)
[2020-08-18] MEDS ORDERED: MENTHOL/PHENOL 1 EACH UD MM PRN (13:17)
[2020-08-18] MEDS ORDERED: P-EPHED 60MG/TRIPROLIDI 2.5MG TABLET PO PRN (13:17)
[2020-08-18] MEDS ORDERED: MAGNESIUM HYDROX 2400MG/30ML ORAL SUSPENSION 30 ML CUP PO PRN (13:17)
[2020-08-18] MEDS ORDERED: guaiFENesin 200 MG/10 ML 10 ML UNIT-DOSE CUPS PO PRN (13:17)
[2020-08-18] MEDS ORDERED: MAGNESIUM CITRATE 300 ML BOTTLE PO PRN (13:17)
[2020-08-18] MEDS ORDERED: LOPERAMIDE HCL 2 MG CAPSULE PO PRN (13:17)
[2020-08-18] MEDS ORDERED: IBUPROFEN 400 MG TABLET (FP) PO PRN (13:17)
[2020-08-18] MEDS ORDERED: MAG HYDROX/AL HYDROX/SIMETH 30 ML UNIT-DOSE CUP PO PRN (13:17)
[2020-08-18] MEDS ORDERED: THIAMINE HCL 100 MG TABLET (FP) PO SCH (22:00)
[2020-08-18] MEDS ORDERED: MELATONIN 5 MG TABLETS PO SCH (22:00)
[2020-08-19 06:36] VITALS: BP 131/58; PULSE 82; TEMP 98
[2020-08-19] MEDS ORDERED: NICOTINE 7 MG/24 HOURS TOPICAL PATCH TD SCH (10:00)
[2020-08-19] MEDS ORDERED: PRENATAL VITAMINS W/ FOLIC ACID TABLET (FP) PO SCH (10:00)
[2020-08-19 11:05] LABS: HIV INTERPRETATION NEGATIVE (NEGATIVE)
== END 2020-08-19 09:20 | disposition left against medical advice (07) | DRG 770 ==
LOC: YASAS 12:24 → Y3W 12:25
PROVIDERS: ADMIT Allergy & Immunology; ATTEND Allergy & Immunology
PROC: HZ42ZZZ Group Counseling for Substance Abuse Treatment, Cognitive-Behavioral (ICD-10-PCS; principal; 2020-08-18)
DX: F11.20 Opioid dependence, uncomplicated (principal); F14.20 Cocaine dependence, uncomplicated; M54.2 Cervicalgia; M54.9 Dorsalgia, unspecified; G89.29 Other chronic pain
CPT/HCPCS: 36415; 87389

== ENCOUNTER 2020-11-20 16:45 | Inpatient (IN) | payer OTHER ==
[2020-11-20 18:14] VITALS: BMI 28.7
[2020-11-20] MEDS ORDERED: MENTHOL/PHENOL 1 EACH UD MM PRN (18:15)
[2020-11-20] MEDS ORDERED: ACETAMINOPHEN 325 MG TABLET (FP) PO PRN ×2 (18:15)
[2020-11-20] MEDS ORDERED: NICOTINE 10 MG CARTRIDGE (INHALER) IH PRN (18:15)
[2020-11-20] MEDS ORDERED: BISMUTH SUBSALICYLATE 524 MG/30 ML PO PRN (18:15)
[2020-11-20] MEDS ORDERED: MAGNESIUM CITRATE 300 ML BOTTLE PO PRN (18:15)
[2020-11-20] MEDS ORDERED: MAGNESIUM HYDROX 2400MG/30ML ORAL SUSPENSION 30 ML CUP PO PRN (18:15)
[2020-11-20] MEDS ORDERED: ONDANSETRON *ODT* 4 MG TABLET SL PRN (18:15)
[2020-11-20] MEDS ORDERED: diazePAM 5 MG TABLET PO PRN (18:15)
[2020-11-20] MEDS ORDERED: IBUPROFEN 400 MG TABLET (FP) PO PRN (18:15)
[2020-11-20] MEDS ORDERED: MAG HYDROX/AL HYDROX/SIMETH 30 ML UNIT-DOSE CUP PO PRN (18:15)
[2020-11-20] MEDS ORDERED: cloNIDine HCL 0.1 MG TABLET PO PRN (18:18)
[2020-11-20] MEDS ORDERED: methaDONE HCL 10 MG TABLET (FOR DETOX USE ONLY) PO ONE (18:18)
[2020-11-20] MEDS ORDERED: NALOXONE (NARCAN) HCL 4 MG/0.1 ML SPRAY NS PRN (18:20)
[2020-11-20] MEDS: hydrOXYzine PAMOATE 25 MG CAPSULE (FP) PO SCH (22:40)
[2020-11-20] MEDS: diazePAM 5 MG TABLET PO SCH (22:40)
[2020-11-20] MEDS: THIAMINE HCL 100 MG TABLET (FP) PO SCH (22:40)
[2020-11-20] MEDS: MELATONIN 5 MG TABLETS PO SCH (22:41)
[2020-11-21] MEDS: hydrOXYzine PAMOATE 25 MG CAPSULE (FP) PO SCH ×5 (05:34→22:35)
[2020-11-21] MEDS: diazePAM 5 MG TABLET PO SCH ×4 (05:34→22:35)
[2020-11-21] MEDS ORDERED: methaDONE HCL 10 MG TABLET (FOR DETOX USE ONLY) ONE (08:46)
[2020-11-21] MEDS: PRENATAL VITAMINS W/ FOLIC ACID TABLET (FP) PO SCH (10:07)
[2020-11-21] MEDS: METHOCARBAMOL 500 MG TABLET PO PRN (10:08)
[2020-11-21 15:20] LABS: HEMATOCRIT 46.1 % (35.4-49); HEMOGLOBIN 15.7 GM/dL (11.7-16.9); MCH 31.1 pg (25.7-33.7); MCHC 34.2 g/dl (32.0-35.9); MEAN CELL VOLUME 91.1 fl (80-96); PLATELET COUNT 294 10^3/uL (134-434); RBC 5.06 M/mm3 (4.00-5.60); RDW 13.2 % (11.9-15.9); WHITE BLOOD COUNT 3.6 K/mm3 (4.0-10.0)
[2020-11-21 15:37] LABS: CALCIUM 8.7 mg/dL (8.5-10.1)
[2020-11-21 15:38] LABS: ALBUMIN 3.3 g/dl (3.4-5.0); BLOOD UREA NITROGEN 11.8 mg/dL (7-18)
[2020-11-21 15:43] LABS: BILIRUBIN,TOTAL 0.8 mg/dL (0.2-1); TOT PROT 6.5 g/dl (6.4-8.2)
[2020-11-21 16:16] LABS: HIV INTERPRETATION NEGATIVE (NEGATIVE)
[2020-11-21] MEDS: THIAMINE HCL 100 MG TABLET (FP) PO SCH (22:35)
[2020-11-21] MEDS: MELATONIN 5 MG TABLETS PO SCH (22:35)
[2020-11-22] MEDS: hydrOXYzine PAMOATE 25 MG CAPSULE (FP) PO SCH ×5 (05:39→22:39)
[2020-11-22] MEDS: diazePAM 5 MG TABLET PO SCH ×3 (05:40→22:39)
[2020-11-22] MEDS ORDERED: methaDONE HCL 10 MG TABLET (FOR DETOX USE ONLY) PO ONE (10:00)
[2020-11-22] MEDS: PRENATAL VITAMINS W/ FOLIC ACID TABLET (FP) PO SCH (10:33)
[2020-11-22] MEDS: METHOCARBAMOL 500 MG TABLET PO PRN ×2 (10:34→22:40)
[2020-11-22] MEDS: MELATONIN 5 MG TABLETS PO SCH (22:39)
[2020-11-22] MEDS: THIAMINE HCL 100 MG TABLET (FP) PO SCH (22:39)
[2020-11-23] MEDS: hydrOXYzine PAMOATE 25 MG CAPSULE (FP) PO SCH ×5 (05:20→22:32)
[2020-11-23] MEDS: diazePAM 5 MG TABLET PO SCH ×2 (05:20→17:52)
[2020-11-23] MEDS ORDERED: methaDONE HCL 10 MG TABLET (FOR DETOX USE ONLY) ONE (08:49)
[2020-11-23] MEDS: PRENATAL VITAMINS W/ FOLIC ACID TABLET (FP) PO SCH (10:17)
[2020-11-23] MEDS: METHOCARBAMOL 500 MG TABLET PO PRN (10:18)
[2020-11-23] MEDS: MELATONIN 5 MG TABLETS PO SCH (22:32)
[2020-11-23] MEDS: THIAMINE HCL 100 MG TABLET (FP) PO SCH (22:32)
[2020-11-24] MEDS: METHOCARBAMOL 500 MG TABLET PO PRN (05:18)
[2020-11-24] MEDS: hydrOXYzine PAMOATE 25 MG CAPSULE (FP) PO SCH (05:18)
[2020-11-24] MEDS ORDERED: diazePAM 5 MG TABLET PO ONE (06:00)
[2020-11-24] MEDS ORDERED: hydrOXYzine PAMOATE 25 MG CAPSULE (FP) PO PRN (07:25)
[2020-11-24] MEDS ORDERED: methaDONE HCL 10 MG TABLET (FOR DETOX USE ONLY) PO ONE (10:00)
[2020-11-24] MEDS: PRENATAL VITAMINS W/ FOLIC ACID TABLET (FP) PO SCH (10:21)
[2020-11-24] MEDS: MELATONIN 5 MG TABLETS PO SCH (22:08)
[2020-11-24] MEDS: THIAMINE HCL 100 MG TABLET (FP) PO SCH (22:39)
[2020-11-25 06:05] VITALS: BP 91/54; PULSE 56; TEMP 96.8
== END 2020-11-25 09:41 | disposition home or self-care (01) | DRG 773 ==
LOC: YASAS 16:45 → Y6N 19:38 → Y3N 11-21 14:41
PROVIDERS: ADMIT Allergy & Immunology; ATTEND Allergy & Immunology
PROC: HZ2ZZZZ Detoxification Services for Substance Abuse Treatment (ICD-10-PCS; principal; 2020-11-20)
DX: F11.23 Opioid dependence with withdrawal (principal); F13.230 Sedative, hypnotic or anxiolytic dependence with withdrawal, uncomplicated; F14.20 Cocaine dependence, uncomplicated; M54.5 Low back pain
CPT/HCPCS: 36415; 80053; 85027; 86780; 87389; C9803; U0003; U0005

== ENCOUNTER 2021-01-10 07:19 | Emergency (ER) | payer OTHER ==
[2021-01-10 07:40] VITALS: BMI 31.3
[2021-01-10 08:45] LABS: BASO % 0.6 % (0-2.0); EOS % 1.6 % (0-4.5); HEMATOCRIT 42.6 % (35.4-49); HEMOGLOBIN 14.9 GM/dL (11.7-16.9); LYMPH % 14.4 % (8-40); MCH 30.1 pg (25.7-33.7); MCHC 35.1 g/dl (32.0-35.9); MEAN CELL VOLUME 85.7 fl (80-96); MEAN PLT VOLUME 7.4 fl (7.5-11.1); MONO % 9.1 % (3.8-10.2); NEUT % 74.3 % (42.8-82.8); PLATELET COUNT 295 10^3/uL (134-434); RBC 4.97 M/mm3 (4.00-5.60); RDW 13.2 % (11.9-15.9); WHITE BLOOD COUNT 10.3 K/mm3 (4.0-10.0)
[2021-01-10 09:00] LABS: CHLORIDE 100 mmol/L (98-107); SODIUM 139 mmol/L (136-145)
[2021-01-10 09:02] LABS: CALCIUM 9.1 mg/dL (8.5-10.1)
[2021-01-10 09:03] LABS: ALBUMIN 3.8 g/dl (3.4-5.0); ANION GAP 2 MMOL/L (8-16); BLOOD UREA NITROGEN 25.4 mg/dL (7-18); CO2 37 mmol/L (21-32); GLUCOSE,RANDOM 100 mg/dL (74-106)
[2021-01-10 09:06] LABS: CREATININE 1.3 mg/dL (0.55-1.3); SGOT/AST 56 U/L (15-37); SGPT/ALT 63 U/L (13-61)
[2021-01-10 09:08] LABS: BILIRUBIN,TOTAL 0.4 mg/dL (0.2-1); TOT PROT 7.2 g/dl (6.4-8.2)
[2021-01-10 09:09] LABS: ALK PHOS 78 U/L (45-117)
[2021-01-10] MEDS ORDERED: KETOROLAC TROMETHAMINE 60 MG/2 ML VIAL IVPUSH ONE (14:51)
[2021-01-10] MEDS ORDERED: LIDO 2%/EPI 1:200000 PRESRVFRE (20 ML SDVIAL) INF ONE (15:44)
[2021-01-10] MEDS ORDERED: ACETAMINOPHEN 325 MG TABLET (FP) PO ONE (15:44)
[2021-01-10] MEDS ORDERED: KETOROLAC TROMETHAMINE 30 MG/1 ML VIAL ONE (15:46)
[2021-01-10] MEDS ORDERED: LIDOCAINE 5% TOPICAL PATCH TP ONE (15:47)
[2021-01-10 16:02] VITALS: TEMP 98.3
[2021-01-10 20:08] VITALS: BP 97/62; PULSE 80
[2021-01-10] MEDS ORDERED: LIDOCAINE PATCH REMOVAL MC SCH (22:00)
== END 2021-01-10 21:17 | disposition home or self-care (01) ==
LOC: JER 07:19
PROC: 3E033GC Introduction of Other Therapeutic Substance into Peripheral Vein, Percutaneous Approach (ICD-10-PCS; principal; 2021-01-10)
DX: R41.82 Altered mental status, unspecified (principal); R53.81 Other malaise; F13.90 Sedative, hypnotic, or anxiolytic use, unspecified, uncomplicated; F19.90 Other psychoactive substance use, unspecified, uncomplicated
CPT/HCPCS: 36415; 70450-TC; 71045-TC-FY; 72125-TC; 72131-TC; 80053; 80307; 82962; 85025; 93005; 93010; 96374; 99285-25

== ENCOUNTER 2021-01-14 11:55 | Inpatient (IN) | payer OTHER ==
[2021-01-14] MEDS ORDERED: MENTHOL/PHENOL 1 EACH UD MM PRN (13:27)
[2021-01-14] MEDS ORDERED: diazePAM 5 MG TABLET PO PRN (13:27)
[2021-01-14] MEDS ORDERED: MAGNESIUM CITRATE 300 ML BOTTLE PO PRN (13:27)
[2021-01-14] MEDS ORDERED: ONDANSETRON *ODT* 4 MG TABLET SL PRN (13:27)
[2021-01-14] MEDS ORDERED: ACETAMINOPHEN 325 MG TABLET (FP) PO PRN ×2 (13:27)
[2021-01-14] MEDS ORDERED: methaDONE HCL 10 MG TABLET (FOR DETOX USE ONLY) PO ONE (13:27)
[2021-01-14] MEDS ORDERED: BISMUTH SUBSALICYLATE 262 MG/15 ML BTL PO PRN (13:27)
[2021-01-14] MEDS ORDERED: IBUPROFEN 400 MG TABLET (FP) PO PRN (13:27)
[2021-01-14] MEDS ORDERED: cloNIDine HCL 0.1 MG TABLET PO PRN (13:27)
[2021-01-14] MEDS ORDERED: MAG HYDROX/AL HYDROX/SIMETH 30 ML UNIT-DOSE CUP PO PRN (13:27)
[2021-01-14] MEDS ORDERED: MAGNESIUM HYDROX 2400MG/30ML ORAL SUSPENSION 30 ML CUP PO PRN (13:27)
[2021-01-14 13:43] VITALS: BMI 27.8
[2021-01-14] MEDS: hydrOXYzine PAMOATE 25 MG CAPSULE (FP) PO SCH ×4 (17:40→22:05)
[2021-01-14] MEDS: diazePAM 5 MG TABLET PO SCH ×2 (17:40→22:05)
[2021-01-14 17:49] LABS: HEMATOCRIT 42.9 % (35.4-49); HEMOGLOBIN 14.7 GM/dL (11.7-16.9); MCH 29.6 pg (25.7-33.7); MCHC 34.3 g/dl (32.0-35.9); MEAN CELL VOLUME 86.2 fl (80-96); PLATELET COUNT 333 10^3/uL (134-434); RBC 4.97 M/mm3 (4.00-5.60); RDW 13.1 % (11.9-15.9); WHITE BLOOD COUNT 6.2 K/mm3 (4.0-10.0)
[2021-01-14 18:06] LABS: ALBUMIN 3.7 g/dl (3.4-5.0); BLOOD UREA NITROGEN 24.3 mg/dL (7-18); CALCIUM 8.9 mg/dL (8.5-10.1)
[2021-01-14 18:09] LABS: CREATININE 1.4 mg/dL (0.55-1.3)
[2021-01-14 18:11] LABS: BILIRUBIN,TOTAL 0.7 mg/dL (0.2-1); TOT PROT 7.4 g/dl (6.4-8.2)
[2021-01-14] MEDS: PRENATAL VITAMINS W/ FOLIC ACID TABLET (FP) PO SCH (18:23)
[2021-01-14] MEDS: THIAMINE HCL 100 MG TABLET (FP) PO SCH (22:05)
[2021-01-14] MEDS: MELATONIN 5 MG TABLETS PO SCH (22:05)
[2021-01-15] MEDS: hydrOXYzine PAMOATE 25 MG CAPSULE (FP) PO SCH ×5 (05:24→22:11)
[2021-01-15] MEDS: diazePAM 5 MG TABLET PO SCH ×4 (05:24→22:12)
[2021-01-15] MEDS ORDERED: methaDONE HCL 10 MG TABLET (FOR DETOX USE ONLY) ONE (09:10)
[2021-01-15] MEDS: PRENATAL VITAMINS W/ FOLIC ACID TABLET (FP) PO SCH (10:32)
[2021-01-15] MEDS: THIAMINE HCL 100 MG TABLET (FP) PO SCH (22:11)
[2021-01-15] MEDS: MELATONIN 5 MG TABLETS PO SCH (22:13)
[2021-01-16] MEDS: diazePAM 5 MG TABLET PO SCH ×3 (05:18→22:07)
[2021-01-16] MEDS: hydrOXYzine PAMOATE 25 MG CAPSULE (FP) PO SCH ×5 (05:18→22:06)
[2021-01-16] MEDS ORDERED: methaDONE HCL 10 MG TABLET (FOR DETOX USE ONLY) PO ONE (10:00)
[2021-01-16] MEDS: PRENATAL VITAMINS W/ FOLIC ACID TABLET (FP) PO SCH (10:28)
[2021-01-16 12:07] LABS: BLOOD UREA NITROGEN 15.4 mg/dL (7-18); CALCIUM 9.3 mg/dL (8.5-10.1)
[2021-01-16 12:10] LABS: CREATININE 0.9 mg/dL (0.55-1.3)
[2021-01-16] MEDS: MELATONIN 5 MG TABLETS PO SCH (22:06)
[2021-01-16] MEDS: THIAMINE HCL 100 MG TABLET (FP) PO SCH (22:07)
[2021-01-17] MEDS: hydrOXYzine PAMOATE 25 MG CAPSULE (FP) PO SCH ×5 (05:28→22:02)
[2021-01-17] MEDS: diazePAM 5 MG TABLET PO SCH ×2 (05:29→17:35)
[2021-01-17] MEDS: PRENATAL VITAMINS W/ FOLIC ACID TABLET (FP) PO SCH (09:33)
[2021-01-17] MEDS ORDERED: methaDONE HCL 10 MG TABLET (FOR DETOX USE ONLY) ONE (09:34)
[2021-01-17] MEDS: MELATONIN 5 MG TABLETS PO SCH (22:01)
[2021-01-17] MEDS: THIAMINE HCL 100 MG TABLET (FP) PO SCH (22:02)
[2021-01-17] MEDS: MIRTAZAPINE 15 MG TABLET (FP) PO SCH (22:02)
[2021-01-18] MEDS: hydrOXYzine PAMOATE 25 MG CAPSULE (FP) PO SCH ×5 (05:19→22:28)
[2021-01-18] MEDS ORDERED: diazePAM 5 MG TABLET PO ONE (06:00)
[2021-01-18] MEDS ORDERED: methaDONE HCL 10 MG TABLET (FOR DETOX USE ONLY) PO ONE (10:00)
[2021-01-18] MEDS: PRENATAL VITAMINS W/ FOLIC ACID TABLET (FP) PO SCH (10:02)
[2021-01-18] MEDS: METHOCARBAMOL 500 MG TABLET PO PRN ×2 (10:03→22:21)
[2021-01-18] MEDS: THIAMINE HCL 100 MG TABLET (FP) PO SCH (22:19)
[2021-01-18] MEDS: MIRTAZAPINE 15 MG TABLET (FP) PO SCH (22:19)
[2021-01-18] MEDS: MELATONIN 5 MG TABLETS PO SCH (22:21)
[2021-01-19] MEDS: hydrOXYzine PAMOATE 25 MG CAPSULE (FP) PO SCH ×2 (05:11→10:08)
[2021-01-19 09:10] VITALS: BP 100/51; PULSE 77; TEMP 97.8
[2021-01-19] MEDS: METHOCARBAMOL 500 MG TABLET PO PRN (10:08)
[2021-01-19] MEDS: PRENATAL VITAMINS W/ FOLIC ACID TABLET (FP) PO SCH (10:08)
== END 2021-01-19 12:22 | disposition other institution (70) | DRG 773 ==
LOC: YASAS 11:55 → Y3N 13:48 → Y6N 01-15 12:59
PROVIDERS: ADMIT Allergy & Immunology; ATTEND Allergy & Immunology
PROC: HZ2ZZZZ Detoxification Services for Substance Abuse Treatment (ICD-10-PCS; principal; 2021-01-14)
DX: F11.23 Opioid dependence with withdrawal (principal); F10.230 Alcohol dependence with withdrawal, uncomplicated; F13.230 Sedative, hypnotic or anxiolytic dependence with withdrawal, uncomplicated; F14.10 Cocaine abuse, uncomplicated; F19.24 Other psychoactive substance dependence with psychoactive substance-induced mood disorder; F41.9 Anxiety disorder, unspecified; F34.1 Dysthymic disorder; G47.00 Insomnia, unspecified; Z56.0 Unemployment, unspecified; Z59.01 Sheltered homelessness
CPT/HCPCS: 36415; 80048; 80053; 85027; 86780; 93005; 93010; C9803; J0735; U0003; U0005

== ENCOUNTER 2021-01-19 11:06 | Inpatient (IN) | payer OTHER ==
[2021-01-19] MEDS ORDERED: NICOTINE 10 MG CARTRIDGE (INHALER) IH PRN (11:55)
[2021-01-19] MEDS ORDERED: MAG HYDROX/AL HYDROX/SIMETH 30 ML UNIT-DOSE CUP PO PRN (11:55)
[2021-01-19] MEDS ORDERED: MAGNESIUM HYDROX 2400MG/30ML ORAL SUSPENSION 30 ML CUP PO PRN (11:55)
[2021-01-19] MEDS ORDERED: guaiFENesin 200 MG/10 ML 10 ML UNIT-DOSE CUPS PO PRN (11:55)
[2021-01-19] MEDS ORDERED: P-EPHED 60MG/TRIPROLIDI 2.5MG TABLET PO PRN (11:55)
[2021-01-19] MEDS ORDERED: MAGNESIUM CITRATE 300 ML BOTTLE PO PRN (11:55)
[2021-01-19] MEDS ORDERED: hydrOXYzine PAMOATE 25 MG CAPSULE (FP) PO PRN (11:55)
[2021-01-19] MEDS ORDERED: ACETAMINOPHEN 325 MG TABLET (FP) PO PRN (11:55)
[2021-01-19] MEDS ORDERED: IBUPROFEN 400 MG TABLET (FP) PO PRN (11:55)
[2021-01-19] MEDS ORDERED: LOPERAMIDE HCL 2 MG CAPSULE PO PRN (11:55)
[2021-01-19] MEDS ORDERED: NICOTINE POLACRILEX 2 MG GUM BUC PRN (11:55)
[2021-01-19] MEDS: MELATONIN 5 MG TABLETS PO SCH (21:05)
[2021-01-19] MEDS: THIAMINE HCL 100 MG TABLET (FP) PO SCH (21:05)
[2021-01-19] MEDS: MIRTAZAPINE 15 MG TABLET (FP) PO SCH (21:05)
[2021-01-20 06:56] VITALS: BP 110/76; PULSE 65; TEMP 97.1
[2021-01-20] MEDS: PRENATAL VITAMINS W/ FOLIC ACID TABLET (FP) PO SCH (09:52)
[2021-01-20] MEDS: THIAMINE HCL 100 MG TABLET (FP) PO SCH (21:19)
[2021-01-20] MEDS: MIRTAZAPINE 15 MG TABLET (FP) PO SCH (21:47)
[2021-01-20] MEDS: MELATONIN 5 MG TABLETS PO SCH (21:47)
[2021-01-21] MEDS: PRENATAL VITAMINS W/ FOLIC ACID TABLET (FP) PO SCH (10:33)
== END 2021-01-21 11:21 | disposition home or self-care (01) | DRG 772 ==
LOC: YASAS 11:06 → Y3E 11:10
PROVIDERS: ADMIT Allergy & Immunology; ATTEND Allergy & Immunology
PROC: HZ42ZZZ Group Counseling for Substance Abuse Treatment, Cognitive-Behavioral (ICD-10-PCS; principal; 2021-01-19)
DX: F11.20 Opioid dependence, uncomplicated (principal); F10.20 Alcohol dependence, uncomplicated; F14.20 Cocaine dependence, uncomplicated; F13.20 Sedative, hypnotic or anxiolytic dependence, uncomplicated

== ENCOUNTER 2021-03-29 11:11 | Inpatient (IN) | payer OTHER ==
[2021-03-29] MEDS ORDERED: IBUPROFEN 400 MG TABLET (FP) PO PRN (11:36)
[2021-03-29] MEDS ORDERED: BISMUTH SUBSALICYLATE 262 MG/15 ML BTL PO PRN (11:36)
[2021-03-29] MEDS ORDERED: MAGNESIUM HYDROX 2400MG/30ML ORAL SUSPENSION 30 ML CUP PO PRN (11:36)
[2021-03-29] MEDS ORDERED: MENTHOL/PHENOL 1 EACH UD MM PRN (11:36)
[2021-03-29] MEDS ORDERED: MAGNESIUM CITRATE 300 ML BOTTLE PO PRN (11:36)
[2021-03-29] MEDS ORDERED: MAG HYDROX/AL HYDROX/SIMETH 30 ML UNIT-DOSE CUP PO PRN (11:36)
[2021-03-29] MEDS ORDERED: ACETAMINOPHEN 325 MG TABLET (FP) PO PRN ×2 (11:36)
[2021-03-29] MEDS ORDERED: ONDANSETRON *ODT* 4 MG TABLET SL PRN (11:36)
[2021-03-29] MEDS: hydrOXYzine PAMOATE 25 MG CAPSULE (FP) PO SCH ×3 (13:33→22:19)
[2021-03-29] MEDS: PRENATAL VITAMINS W/ FOLIC ACID TABLET (FP) PO SCH (13:34)
[2021-03-29 13:42] LABS: HEMATOCRIT 45.3 % (35.4-49); HEMOGLOBIN 15.4 GM/dL (11.7-16.9); MCH 30.3 pg (25.7-33.7); MEAN CELL VOLUME 89.1 fl (80-96); MEAN PLT VOLUME 8.2 fl (7.5-11.1); PLATELET COUNT 357 10^3/uL (134-434); RBC 5.09 M/mm3 (4.00-5.60); RDW 13.3 % (11.9-15.9); WHITE BLOOD COUNT 6.9 K/mm3 (4.0-10.0)
[2021-03-29 13:44] LABS: ALBUMIN 3.7 g/dl (3.4-5.0); BLOOD UREA NITROGEN 12.3 mg/dL (7-18); CALCIUM 9.5 mg/dL (8.5-10.1)
[2021-03-29 13:47] LABS: CREATININE 0.9 mg/dL (0.55-1.3)
[2021-03-29 13:49] LABS: BILIRUBIN,TOTAL 0.7 mg/dL (0.2-1); TOT PROT 7.4 g/dl (6.4-8.2)
[2021-03-29 18:49] VITALS: BMI 60.8
[2021-03-29] MEDS: THIAMINE HCL 100 MG TABLET (FP) PO SCH (22:19)
[2021-03-29] MEDS: QUEtiapine FUMARATE 50 MG TABLET PO SCH (22:19)
[2021-03-29] MEDS: MELATONIN 5 MG TABLETS PO SCH (22:19)
[2021-03-29] MEDS: METHOCARBAMOL 500 MG TABLET PO PRN (22:20)
[2021-03-30] MEDS: hydrOXYzine PAMOATE 25 MG CAPSULE (FP) PO SCH ×5 (06:26→22:16)
[2021-03-30] MEDS ORDERED: diazePAM 5 MG TABLET PO PRN (09:16)
[2021-03-30] MEDS ORDERED: diazePAM 5 MG TABLET PO ONE (09:16)
[2021-03-30] MEDS ORDERED: cloNIDine HCL 0.1 MG TABLET PO PRN (09:17)
[2021-03-30] MEDS ORDERED: methaDONE HCL 10 MG TABLET (FOR DETOX USE ONLY) PO ONE (09:17)
[2021-03-30] MEDS: PRENATAL VITAMINS W/ FOLIC ACID TABLET (FP) PO SCH (10:44)
[2021-03-30] MEDS: diazePAM 5 MG TABLET PO SCH ×3 (10:45→22:16)
[2021-03-30] MEDS: MELATONIN 5 MG TABLETS PO SCH (22:16)
[2021-03-30] MEDS: THIAMINE HCL 100 MG TABLET (FP) PO SCH (22:16)
[2021-03-30] MEDS: QUEtiapine FUMARATE 50 MG TABLET PO SCH (22:16)
[2021-03-31] MEDS: diazePAM 5 MG TABLET PO SCH ×4 (06:10→22:26)
[2021-03-31] MEDS: hydrOXYzine PAMOATE 25 MG CAPSULE (FP) PO SCH ×5 (06:10→22:27)
[2021-03-31] MEDS ORDERED: methaDONE HCL 10 MG TABLET (FOR DETOX USE ONLY) ONE (08:49)
[2021-03-31] MEDS: PRENATAL VITAMINS W/ FOLIC ACID TABLET (FP) PO SCH (10:07)
[2021-03-31] MEDS: MELATONIN 5 MG TABLETS PO SCH (22:26)
[2021-03-31] MEDS: THIAMINE HCL 100 MG TABLET (FP) PO SCH (22:27)
[2021-03-31] MEDS: QUEtiapine FUMARATE 50 MG TABLET PO SCH (22:27)
[2021-03-31] MEDS: METHOCARBAMOL 500 MG TABLET PO PRN (22:27)
[2021-04-01] MEDS: hydrOXYzine PAMOATE 25 MG CAPSULE (FP) PO SCH ×5 (06:23→22:10)
[2021-04-01] MEDS: diazePAM 5 MG TABLET PO SCH ×3 (06:23→22:11)
[2021-04-01] MEDS ORDERED: methaDONE HCL 10 MG TABLET (FOR DETOX USE ONLY) PO ONE (10:00)
[2021-04-01] MEDS: PRENATAL VITAMINS W/ FOLIC ACID TABLET (FP) PO SCH (10:29)
[2021-04-01 11:21] LABS: GLUCOSE,FASTING 79 mg/dL (74-106)
[2021-04-01 11:24] LABS: SGOT/AST 24 U/L (15-37); SGPT/ALT 67 U/L (13-61)
[2021-04-01] MEDS: THIAMINE HCL 100 MG TABLET (FP) PO SCH (22:10)
[2021-04-01] MEDS: MELATONIN 5 MG TABLETS PO SCH (22:10)
[2021-04-01] MEDS: QUEtiapine FUMARATE 50 MG TABLET PO SCH (22:10)
[2021-04-02] MEDS: diazePAM 5 MG TABLET PO SCH ×2 (06:19→18:11)
[2021-04-02] MEDS: hydrOXYzine PAMOATE 25 MG CAPSULE (FP) PO SCH ×5 (06:19→22:32)
[2021-04-02] MEDS ORDERED: methaDONE HCL 10 MG TABLET (FOR DETOX USE ONLY) ONE (09:21)
[2021-04-02] MEDS: PRENATAL VITAMINS W/ FOLIC ACID TABLET (FP) PO SCH (10:12)
[2021-04-02] MEDS: MELATONIN 5 MG TABLETS PO SCH (22:32)
[2021-04-02] MEDS: QUEtiapine FUMARATE 50 MG TABLET PO SCH (22:32)
[2021-04-02] MEDS: THIAMINE HCL 100 MG TABLET (FP) PO SCH (22:32)
[2021-04-03] MEDS ORDERED: diazePAM 5 MG TABLET PO ONE (06:00)
[2021-04-03] MEDS: hydrOXYzine PAMOATE 25 MG CAPSULE (FP) PO SCH ×5 (06:03→22:28)
[2021-04-03] MEDS ORDERED: methaDONE HCL 10 MG TABLET (FOR DETOX USE ONLY) PO ONE (10:00)
[2021-04-03] MEDS: METHOCARBAMOL 500 MG TABLET PO PRN (10:26)
[2021-04-03] MEDS: PRENATAL VITAMINS W/ FOLIC ACID TABLET (FP) PO SCH (10:26)
[2021-04-03] MEDS: QUEtiapine FUMARATE 50 MG TABLET PO SCH (22:26)
[2021-04-03] MEDS: MELATONIN 5 MG TABLETS PO SCH (22:27)
[2021-04-03] MEDS: THIAMINE HCL 100 MG TABLET (FP) PO SCH (22:28)
[2021-04-04] MEDS: hydrOXYzine PAMOATE 25 MG CAPSULE (FP) PO SCH ×2 (07:17→10:10)
[2021-04-04] MEDS: PRENATAL VITAMINS W/ FOLIC ACID TABLET (FP) PO SCH (10:10)
[2021-04-04 14:15] VITALS: BP 106/65; PULSE 78; TEMP 97.8
== END 2021-04-04 13:10 | disposition other institution (70) | DRG 773 ==
LOC: YASAS 11:11 → Y3N 12:27
PROVIDERS: ADMIT Allergy & Immunology; ATTEND Allergy & Immunology
PROC: HZ2ZZZZ Detoxification Services for Substance Abuse Treatment (ICD-10-PCS; principal; 2021-03-29)
DX: F11.23 Opioid dependence with withdrawal (principal); F10.230 Alcohol dependence with withdrawal, uncomplicated; F13.230 Sedative, hypnotic or anxiolytic dependence with withdrawal, uncomplicated; F19.24 Other psychoactive substance dependence with psychoactive substance-induced mood disorder; F34.1 Dysthymic disorder; F41.9 Anxiety disorder, unspecified; F32.A Depression, unspecified; G47.00 Insomnia, unspecified; R74.01 Elevation of levels of liver transaminase levels; Z87.891 Personal history of nicotine dependence
CPT/HCPCS: 36415; 80053; 82947; 83036; 84450; 84460; 85027; 86780; C9803; U0003; U0005

== ENCOUNTER 2021-04-04 13:08 | Inpatient (IN) | payer OTHER ==
[2021-04-04] MEDS ORDERED: guaiFENesin 200 MG/10 ML 10 ML UNIT-DOSE CUPS PO PRN (15:50)
[2021-04-04] MEDS ORDERED: MENTHOL/PHENOL 1 EACH UD MM PRN (15:50)
[2021-04-04] MEDS ORDERED: MAG HYDROX/AL HYDROX/SIMETH 30 ML UNIT-DOSE CUP PO PRN (15:50)
[2021-04-04] MEDS ORDERED: hydrOXYzine PAMOATE 25 MG CAPSULE (FP) PO PRN (15:50)
[2021-04-04] MEDS ORDERED: MAGNESIUM HYDROX 2400MG/30ML ORAL SUSPENSION 30 ML CUP PO PRN (15:50)
[2021-04-04] MEDS ORDERED: LOPERAMIDE HCL 2 MG CAPSULE PO PRN (15:50)
[2021-04-04] MEDS ORDERED: IBUPROFEN 400 MG TABLET (FP) PO PRN (15:50)
[2021-04-04] MEDS ORDERED: MAGNESIUM CITRATE 300 ML BOTTLE PO PRN (15:50)
[2021-04-04] MEDS ORDERED: ACETAMINOPHEN 325 MG TABLET (FP) PO PRN (15:50)
[2021-04-04] MEDS ORDERED: P-EPHED 60MG/TRIPROLIDI 2.5MG TABLET PO PRN (15:50)
[2021-04-04] MEDS: MELATONIN 5 MG TABLETS PO SCH (21:59)
[2021-04-04] MEDS: THIAMINE HCL 100 MG TABLET (FP) PO SCH (21:59)
[2021-04-05] MEDS: PRENATAL VITAMINS W/ FOLIC ACID TABLET (FP) PO SCH (09:49)
[2021-04-05] MEDS: MELATONIN 5 MG TABLETS PO SCH (21:39)
[2021-04-05] MEDS: QUEtiapine FUMARATE 50 MG TABLET PO SCH (21:39)
[2021-04-05] MEDS: THIAMINE HCL 100 MG TABLET (FP) PO SCH (21:39)
[2021-04-06] MEDS: PRENATAL VITAMINS W/ FOLIC ACID TABLET (FP) PO SCH (10:13)
[2021-04-06] MEDS: QUEtiapine FUMARATE 50 MG TABLET PO SCH (21:29)
[2021-04-06] MEDS: MELATONIN 5 MG TABLETS PO SCH (21:29)
[2021-04-06] MEDS: THIAMINE HCL 100 MG TABLET (FP) PO SCH (21:29)
[2021-04-07] MEDS: PRENATAL VITAMINS W/ FOLIC ACID TABLET (FP) PO SCH (10:23)
[2021-04-07] MEDS: QUEtiapine FUMARATE 50 MG TABLET PO SCH (21:29)
[2021-04-07] MEDS: THIAMINE HCL 100 MG TABLET (FP) PO SCH (21:29)
[2021-04-07] MEDS: MELATONIN 5 MG TABLETS PO SCH (21:29)
[2021-04-08] MEDS: PRENATAL VITAMINS W/ FOLIC ACID TABLET (FP) PO SCH (10:26)
[2021-04-08] MEDS: THIAMINE HCL 100 MG TABLET (FP) PO SCH (21:27)
[2021-04-08] MEDS: MELATONIN 5 MG TABLETS PO SCH (21:27)
[2021-04-08] MEDS: QUEtiapine FUMARATE 50 MG TABLET PO SCH (21:27)
[2021-04-09] MEDS: PRENATAL VITAMINS W/ FOLIC ACID TABLET (FP) PO SCH (10:35)
[2021-04-09] MEDS: QUEtiapine FUMARATE 50 MG TABLET PO SCH (21:53)
[2021-04-09] MEDS: THIAMINE HCL 100 MG TABLET (FP) PO SCH (21:54)
[2021-04-09] MEDS: MELATONIN 5 MG TABLETS PO SCH (21:54)
[2021-04-10] MEDS: PRENATAL VITAMINS W/ FOLIC ACID TABLET (FP) PO SCH (10:53)
[2021-04-10] MEDS: MELATONIN 5 MG TABLETS PO SCH (21:58)
[2021-04-10] MEDS: THIAMINE HCL 100 MG TABLET (FP) PO SCH (21:58)
[2021-04-10] MEDS: QUEtiapine FUMARATE 50 MG TABLET PO SCH (21:58)
[2021-04-11] MEDS: PRENATAL VITAMINS W/ FOLIC ACID TABLET (FP) PO SCH (10:04)
[2021-04-11] MEDS: THIAMINE HCL 100 MG TABLET (FP) PO SCH (21:46)
[2021-04-11] MEDS: MELATONIN 5 MG TABLETS PO SCH (21:46)
[2021-04-11] MEDS: QUEtiapine FUMARATE 50 MG TABLET PO SCH (21:46)
[2021-04-12] MEDS: PRENATAL VITAMINS W/ FOLIC ACID TABLET (FP) PO SCH (10:33)
[2021-04-12] MEDS: QUEtiapine FUMARATE 50 MG TABLET PO SCH (21:28)
[2021-04-12] MEDS: MELATONIN 5 MG TABLETS PO SCH (21:28)
[2021-04-12] MEDS: THIAMINE HCL 100 MG TABLET (FP) PO SCH (21:28)
[2021-04-13] MEDS: PRENATAL VITAMINS W/ FOLIC ACID TABLET (FP) PO SCH (11:40)
[2021-04-13] MEDS ORDERED: METHOCARBAMOL 500 MG TABLET PO PRN (14:18)
[2021-04-13] MEDS: THIAMINE HCL 100 MG TABLET (FP) PO SCH (21:11)
[2021-04-13] MEDS: QUEtiapine FUMARATE 50 MG TABLET PO SCH (21:11)
[2021-04-13] MEDS: MELATONIN 5 MG TABLETS PO SCH (21:11)
[2021-04-14] MEDS: PRENATAL VITAMINS W/ FOLIC ACID TABLET (FP) PO SCH (10:28)
[2021-04-14] MEDS: QUEtiapine FUMARATE 50 MG TABLET PO SCH (21:10)
[2021-04-14] MEDS: THIAMINE HCL 100 MG TABLET (FP) PO SCH (21:10)
[2021-04-14] MEDS: MELATONIN 5 MG TABLETS PO SCH (21:11)
[2021-04-15] MEDS: PRENATAL VITAMINS W/ FOLIC ACID TABLET (FP) PO SCH (09:43)
[2021-04-15] MEDS: QUEtiapine FUMARATE 50 MG TABLET PO SCH (21:32)
[2021-04-15] MEDS: MELATONIN 5 MG TABLETS PO SCH (21:32)
[2021-04-15] MEDS: THIAMINE HCL 100 MG TABLET (FP) PO SCH (21:32)
[2021-04-16] MEDS: PRENATAL VITAMINS W/ FOLIC ACID TABLET (FP) PO SCH (10:15)
[2021-04-16] MEDS: MELATONIN 5 MG TABLETS PO SCH (21:20)
[2021-04-16] MEDS: THIAMINE HCL 100 MG TABLET (FP) PO SCH (21:20)
[2021-04-16] MEDS: QUEtiapine FUMARATE 50 MG TABLET PO SCH (21:20)
[2021-04-17] MEDS: PRENATAL VITAMINS W/ FOLIC ACID TABLET (FP) PO SCH (10:12)
[2021-04-17] MEDS: THIAMINE HCL 100 MG TABLET (FP) PO SCH (21:10)
[2021-04-17] MEDS: MELATONIN 5 MG TABLETS PO SCH (21:10)
[2021-04-17] MEDS: QUEtiapine FUMARATE 50 MG TABLET PO SCH (21:10)
[2021-04-18] MEDS: PRENATAL VITAMINS W/ FOLIC ACID TABLET (FP) PO SCH (10:44)
[2021-04-18] MEDS: QUEtiapine FUMARATE 50 MG TABLET PO SCH (21:37)
[2021-04-18] MEDS: MELATONIN 5 MG TABLETS PO SCH (21:37)
[2021-04-18] MEDS: THIAMINE HCL 100 MG TABLET (FP) PO SCH (21:37)
[2021-04-19] MEDS ORDERED: HYDROCORTISONE 1% TOPICAL CREAM 30 GM TUBE TP PRN (09:33)
[2021-04-19] MEDS: COLLOIDAL OATMEAL 1 BAR EACH TP PRN (10:06)
[2021-04-19] MEDS: PRENATAL VITAMINS W/ FOLIC ACID TABLET (FP) PO SCH (10:28)
[2021-04-19] MEDS: MINERAL OIL/PETROLAT/WATER TOPICAL CREAM 113 GM JAR TP SCH (10:28)
[2021-04-19] MEDS: QUEtiapine FUMARATE 50 MG TABLET PO SCH (21:36)
[2021-04-19] MEDS: THIAMINE HCL 100 MG TABLET (FP) PO SCH (21:36)
[2021-04-19] MEDS: MELATONIN 5 MG TABLETS PO SCH (21:36)
[2021-04-20] MEDS: PRENATAL VITAMINS W/ FOLIC ACID TABLET (FP) PO SCH (10:23)
[2021-04-20] MEDS: MINERAL OIL/PETROLAT/WATER TOPICAL CREAM 113 GM JAR TP SCH (10:23)
[2021-04-20] MEDS: QUEtiapine FUMARATE 50 MG TABLET PO SCH (21:22)
[2021-04-20] MEDS: MELATONIN 5 MG TABLETS PO SCH (21:22)
[2021-04-20] MEDS: THIAMINE HCL 100 MG TABLET (FP) PO SCH (21:22)
[2021-04-21] MEDS: PRENATAL VITAMINS W/ FOLIC ACID TABLET (FP) PO SCH (10:24)
[2021-04-21] MEDS: MINERAL OIL/PETROLAT/WATER TOPICAL CREAM 113 GM JAR TP SCH (10:24)
[2021-04-21] MEDS: QUEtiapine FUMARATE 50 MG TABLET PO SCH (21:19)
[2021-04-21] MEDS: THIAMINE HCL 100 MG TABLET (FP) PO SCH (21:19)
[2021-04-21] MEDS: MELATONIN 5 MG TABLETS PO SCH (21:19)
[2021-04-22] MEDS: MINERAL OIL/PETROLAT/WATER TOPICAL CREAM 113 GM JAR TP SCH (10:14)
[2021-04-22] MEDS: PRENATAL VITAMINS W/ FOLIC ACID TABLET (FP) PO SCH (10:14)
[2021-04-22] MEDS: QUEtiapine FUMARATE 50 MG TABLET PO SCH (21:27)
[2021-04-22] MEDS: MELATONIN 5 MG TABLETS PO SCH (21:27)
[2021-04-22] MEDS: THIAMINE HCL 100 MG TABLET (FP) PO SCH (21:27)
[2021-04-23] MEDS: MINERAL OIL/PETROLAT/WATER TOPICAL CREAM 113 GM JAR TP SCH (10:22)
[2021-04-23] MEDS: PRENATAL VITAMINS W/ FOLIC ACID TABLET (FP) PO SCH (10:22)
[2021-04-23] MEDS: THIAMINE HCL 100 MG TABLET (FP) PO SCH (21:12)
[2021-04-23] MEDS: MELATONIN 5 MG TABLETS PO SCH (21:12)
[2021-04-23] MEDS: QUEtiapine FUMARATE 50 MG TABLET PO SCH (21:12)
[2021-04-24] MEDS: MINERAL OIL/PETROLAT/WATER TOPICAL CREAM 113 GM JAR TP SCH (09:55)
[2021-04-24] MEDS: PRENATAL VITAMINS W/ FOLIC ACID TABLET (FP) PO SCH (09:55)
[2021-04-24] MEDS: MELATONIN 5 MG TABLETS PO SCH (21:31)
[2021-04-24] MEDS: THIAMINE HCL 100 MG TABLET (FP) PO SCH (21:31)
[2021-04-24] MEDS: QUEtiapine FUMARATE 50 MG TABLET PO SCH (21:31)
[2021-04-25] MEDS: PRENATAL VITAMINS W/ FOLIC ACID TABLET (FP) PO SCH (09:23)
[2021-04-25] MEDS: MINERAL OIL/PETROLAT/WATER TOPICAL CREAM 113 GM JAR TP SCH (09:23)
[2021-04-25] MEDS: THIAMINE HCL 100 MG TABLET (FP) PO SCH (21:21)
[2021-04-25] MEDS: QUEtiapine FUMARATE 50 MG TABLET PO SCH (21:21)
[2021-04-25] MEDS: MELATONIN 5 MG TABLETS PO SCH (21:21)
[2021-04-26] MEDS: PRENATAL VITAMINS W/ FOLIC ACID TABLET (FP) PO SCH (10:18)
[2021-04-26] MEDS: MINERAL OIL/PETROLAT/WATER TOPICAL CREAM 113 GM JAR TP SCH (10:18)
[2021-04-26] MEDS: QUEtiapine FUMARATE 50 MG TABLET PO SCH (21:56)
[2021-04-26] MEDS: MELATONIN 5 MG TABLETS PO SCH (21:57)
[2021-04-26] MEDS: THIAMINE HCL 100 MG TABLET (FP) PO SCH (21:57)
[2021-04-27] MEDS: PRENATAL VITAMINS W/ FOLIC ACID TABLET (FP) PO SCH (10:36)
[2021-04-27] MEDS: MINERAL OIL/PETROLAT/WATER TOPICAL CREAM 113 GM JAR TP SCH (10:36)
[2021-04-27] MEDS: COLLOIDAL OATMEAL 1 BAR EACH TP PRN (17:36)
[2021-04-27] MEDS: MELATONIN 5 MG TABLETS PO SCH (21:19)
[2021-04-27] MEDS: QUEtiapine FUMARATE 50 MG TABLET PO SCH (21:19)
[2021-04-27] MEDS: THIAMINE HCL 100 MG TABLET (FP) PO SCH (21:19)
[2021-04-28] MEDS: MINERAL OIL/PETROLAT/WATER TOPICAL CREAM 113 GM JAR TP SCH (10:18)
[2021-04-28] MEDS: PRENATAL VITAMINS W/ FOLIC ACID TABLET (FP) PO SCH (10:18)
[2021-04-28] MEDS: QUEtiapine FUMARATE 50 MG TABLET PO SCH (21:27)
[2021-04-28] MEDS: THIAMINE HCL 100 MG TABLET (FP) PO SCH (21:27)
[2021-04-28] MEDS: MELATONIN 5 MG TABLETS PO SCH (21:27)
[2021-04-29] MEDS: PRENATAL VITAMINS W/ FOLIC ACID TABLET (FP) PO SCH (10:37)
[2021-04-29] MEDS: MINERAL OIL/PETROLAT/WATER TOPICAL CREAM 113 GM JAR TP SCH (10:37)
[2021-04-29] MEDS: QUEtiapine FUMARATE 50 MG TABLET PO SCH (21:22)
[2021-04-29] MEDS: MELATONIN 5 MG TABLETS PO SCH (21:22)
[2021-04-29] MEDS: THIAMINE HCL 100 MG TABLET (FP) PO SCH (21:22)
[2021-04-30 07:28] VITALS: TEMP 97.1
[2021-04-30] MEDS: MINERAL OIL/PETROLAT/WATER TOPICAL CREAM 113 GM JAR TP SCH (10:10)
[2021-04-30] MEDS: PRENATAL VITAMINS W/ FOLIC ACID TABLET (FP) PO SCH (10:10)
[2021-04-30] MEDS: MELATONIN 5 MG TABLETS PO SCH (21:35)
[2021-04-30] MEDS: THIAMINE HCL 100 MG TABLET (FP) PO SCH (21:35)
[2021-04-30] MEDS: QUEtiapine FUMARATE 50 MG TABLET PO SCH (21:35)
[2021-05-01] MEDS: PRENATAL VITAMINS W/ FOLIC ACID TABLET (FP) PO SCH (10:52)
[2021-05-01] MEDS: MINERAL OIL/PETROLAT/WATER TOPICAL CREAM 113 GM JAR TP SCH (10:52)
[2021-05-01] MEDS: QUEtiapine FUMARATE 50 MG TABLET PO SCH (21:04)
[2021-05-01] MEDS: THIAMINE HCL 100 MG TABLET (FP) PO SCH (21:04)
[2021-05-01] MEDS: MELATONIN 5 MG TABLETS PO SCH (21:04)
[2021-05-02 07:18] VITALS: BP 106/74; PULSE 76
[2021-05-02] MEDS: MINERAL OIL/PETROLAT/WATER TOPICAL CREAM 113 GM JAR TP SCH (10:15)
[2021-05-02] MEDS: PRENATAL VITAMINS W/ FOLIC ACID TABLET (FP) PO SCH (10:15)
[2021-05-02] MEDS: QUEtiapine FUMARATE 50 MG TABLET PO SCH (21:44)
[2021-05-02] MEDS: THIAMINE HCL 100 MG TABLET (FP) PO SCH (21:44)
[2021-05-02] MEDS: MELATONIN 5 MG TABLETS PO SCH (21:45)
== END 2021-05-03 09:25 | disposition home or self-care (01) | DRG 772 ==
LOC: YASAS 13:08 → Y3E 13:10
PROVIDERS: ADMIT Allergy & Immunology; ATTEND Allergy & Immunology
PROC: HZ42ZZZ Group Counseling for Substance Abuse Treatment, Cognitive-Behavioral (ICD-10-PCS; principal; 2021-04-04)
DX: F10.20 Alcohol dependence, uncomplicated (principal); F13.20 Sedative, hypnotic or anxiolytic dependence, uncomplicated; F11.20 Opioid dependence, uncomplicated; F19.24 Other psychoactive substance dependence with psychoactive substance-induced mood disorder; F34.1 Dysthymic disorder; R21 Rash and other nonspecific skin eruption; Z87.891 Personal history of nicotine dependence
CPT/HCPCS: C9803; U0003; U0005